=== PATIENT | male | born 1960 | race Caucasian/White ===

== ENCOUNTER 2017-09-09 14:01 | Emergency (ER) | payer OTHER ==
[~2017-09-09] VITALS: Ht 177.8 cm; Wt 111.1 kg
[2017-09-09] MEDS ORDERED: METOPROLOL TART50 M1 PO (14:11)
[2017-09-09] MEDS ORDERED: ATORVASTATIN CA40 M1 PO (14:11)
[2017-09-09 14:15] VITALS: BP 149/87
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
[2017-09-09] MEDS ORDERED: IBUPROFEN600 M1 PO (16:03)
[2017-09-09] MEDS ORDERED: CYCLOBENZAPRINE10 M1 PO ×2 (16:03→16:14)
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
[2017-09-09] MEDS ORDERED: IBUPROFEN800 M1 PO (16:14)
== END 2017-09-09 16:22 ==
LOC: ERH 14:01
DX: S39.012A Strain of muscle, fascia and tendon of lower back, initial encounter (principal); S16.1XXA Strain of muscle, fascia and tendon at neck level, initial encounter; V49.40XA Driver injured in collision with unspecified motor vehicles in traffic accident, initial encounter; Y92.9 Unspecified place or not applicable
CPT/HCPCS: 72050; 72110